=== PATIENT | female | born 1940 | race Caucasian/White ===

== ENCOUNTER → 2016-08-06 | Day surgery (SDC) | payer MEDICARE ==
--- NOTE | 2016-07-31 14:25 | MH ---
cc: Lorin CABRALES M.D. DATE OF ADMISSION: 08/06/2016 ADMITTING DIAGNOSIS Status post open reduction, internal fixation of right tibial plateau fracture, now for hardware removal. HISTORY OF PRESENT ILLNESS This is pleasant 75-year-old female is being admitted today for removal of hardware from her right tibia secondary to fracture which she sustained over two years ago. PAST MEDICAL HISTORY 1. Arthritis. 2. Hypertension. MEDICATIONS 1. Lisinopril/hydrochlorothiazide. 2. Oxybutynin. 3. Simvastatin. PAST SURGICAL HISTORY Previous surgery is only on the knee. REVIEW OF SYSTEMS Noncontributory. FAMILY HISTORY Noncontributory. SOCIAL HISTORY She does not smoke or drink. ALLERGIES No known allergies. PHYSICAL EXAMINATION GENERAL: We find a 75-year-old female well-developed, well-nourished, oriented x3, complaining of pain in her right knee. VITAL SIGNS: Blood pressure 120/72, pulse 74 and regular, respirations 16, temperature 97.7, pulse oximetry 98% on room air. HEENT: Eyes PERRLA, EOMI. Ears, nose and mouth clear. NECK: Supple. LUNGS: Clear. HEART: Regular rate. ABDOMEN: Soft. Positive bowel sounds. Nontender. EXTREMITIES: The right knee is tender with crepitance on range of motion. She is neurovascularly intact to her toes. IMPRESSION The impression at this time is arthritic degeneration secondary to a tibial plateau fracture right leg for which she underwent open reduction, internal fixation with hardware. PLAN The plan is for removal of hardware today and eventually she will require a total knee arthroplasty. She understands the procedure well and the risks involved. She is given a prescription for postoperative pain control in the office. MD PEDRO Cunningham/VIET /2:16 PM /2:20 PM
[~2016-08-06] VITALS: Ht 157.5 cm; Wt 79.8 kg
[~2016-08-06] MED LIST: BUPIVACAINE HCL PF 0.25% 30 ML VIAL INFIL ONE; BUPIVACAINE HCL PF 0.25% 30 ML VIAL ONE; BUPIVACAINE HCL PF 0.5% 30 ML VIAL ONE; CHLORHEXIDINE GLUCONATE 2 % 1 PACK (2 CLOTHS) TOPICAL PRN; CHLORHEXIDINE GLUCONATE 4% SOLN 120 ML BTL TOPICAL SCH; CYCL1TAB29 PO; DO NOT ADM ANY ANTICOAGULANT DRUGS PRN; ERGO2000 PO; FAMOTIDINE 20 MG/2 ML VIAL ONE; HYDR-3516 PO; INSULIN HUMAN REGULAR 1,000 UNITS/10 ML VIAL SQ PRN; KETAMINE HCL 500 MG/5 ML VIAL ONE; KETOROLAC TROMETHAMINE 30 MG/ML (IVP) VIAL IVP PRN; KETOROLAC TROMETHAMINE 60 MG/2 ML (IM) VIAL IM ONE; LACTATED RINGER'S 1000 ML INJ 1,000 ML IV SCH; LACTATED RINGER'S 1000 ML IV PRN; LISI20TA PO; MEPERIDINE HCL 50 MG/ML VIAL IM ONE; METOPROLOL TARTRATE 25 MG TAB PO PRN; MIDAZOLAM HCL 2 MG/2 ML VIAL ONE; MORPHINE SULFATE 4 MG/ML INJ ONE; ONDANSETRON HCL 4 MG/2 ML VIAL IV PRN; ONDANSETRON HCL 4 MG/2 ML VIAL IV PUSH ONE; OXYB5TAB10 PO; PHENYLEPH/NS 1000 MCG/10 ML SYR IV ONE; POVIDONE IODINE 5% (ANTISEPSIS KIT) 4 APPLICATIONS EACH NARE PRN; PROPOFOL 200 MG/20 ML AMP IV ONE; SIMV20TA PO; SODIUM CHLORID 0.9% 500 ML IV PRN; TYLE325T PO; VANCOMYCIN 1000 MG/NS 250 ML (for <70 kg) IV SCH; ZOLE5P IV; ceFAZolin 2 GM PREMIX 50 ML IV SCH; ceFAZolin INJ 1,000 MG VIAL ONE; ePHEDrine/NS 25 MG/5 ML SYR IV ONE; oxyCODONE/ACETAMINOPHEN 5 MG/325 MG TAB PO PRN
[2016-08-06 05:30] VITALS: BP 116/57; PULSE 75; RESP 20; TEMP 98.7; O2SAT 98
--- NOTE | 2016-08-06 08:09 | EKG ---
Date Performed: 08/06/2016 Time Performed: 07:36:45 PTAGE: 75 years EKG: Sinus rhythm POSSIBLE LEFT ATRIAL ENLARGEMENT BORDERLINE ECG PREVIOUS TRACING : 03/17/2014 05.52 DOCTOR: Chris Reece Interpretating Date/Time 08/06/2016 08:07:05
--- NOTE | 2016-08-06 11:07 | RADRPT ---
EXAM DATE/TIME: 08/06/2016 09:28 [facility] COMPARISON: KNEE RIGHT LTD (1 OR 2 VWS), March 18, 2014, 14:05. INDICATIONS : Hardware removal right tib. MEDICAL HISTORY : None. SURGICAL HISTORY : Orif right tib. ENCOUNTER: Initial ACUITY: 1 day PAIN SCORE: Non-responsive. LOCATION: Right Tib. FINDINGS: A single view postop demonstrates removal of the previous side plate in the proximal tibia. There are 3 internal fixation screws remaining along the medial proximal tibia. CONCLUSION: The previously noted hardware has been removed. Henry Lizama MD on August 06, 2016 at 11:04 Board Certified Radiologist. This report was verified electronically.
[2016-08-06 12:00] VITALS: BP 111/50; PULSE 70; RESP 20; TEMP 96.3; O2SAT 98
--- NOTE | 2016-08-06 19:34 | MP ---
cc: Lorin CABRALES M.D. DATE OF SURGERY 08/06/2016 PREOPERATIVE DIAGNOSIS Retained hardware, status post open reduction, internal fixation of right tibial plateau fracture two years ago. POSTOPERATIVE DIAGNOSIS Retained hardware, status post open reduction, internal fixation of right tibial plateau fracture two years ago. SURGERY PERFORMED Removal of plate and screws from the lateral side of the tibial plateau fracture right leg. SURGEON Dr. Cabrales CONDUIT WORKER BIANKA Brothers ANESTHESIA General intubation. PROCEDURE DETAILS The patient was brought to the operating room and placed on the operating table in supine position. After successful induction of general anesthesia, the patient's right knee and leg were prepped, draped usual manner. An incision was then made through the old anterior lateral incision, 8 inches in length centering over the knee joint on the lateral side and coming down along the lateral tibial plateau and proximal tibia. It was carried down to subcutaneous tissue, deep fascia, to expose the plate and screws over the proximal tibia. Plate and screws were removed using screwdriver and the plate freed with a periosteal elevator. However, the distal screw was filled with a screw that was extremely tight and could not be removed using the screwdriver. Therefore, extra time was needed about an hour of extra time to bend the plate sufficiently to get it off the screw followed by trying different devices to remove the screw which failed until we got a vice merchandise examiner plier to clasp onto the head followed by small drill hole made right next to the screws to free it up somewhat to remove the screw. After the screw was removed AP and lateral views revealed successful removal of the plate and screws from the lateral side. The three proximal screws were left as these will be removed when the patient undergoes a total knee later on. The surgical forceps fabricator Macario Gaytan, was utilized and present during the entire procedure for the patient positioning, medical necessity as well as the procedure itself. The medical necessity of nurse practitioner welder first class was indicated in this case due to the surgical complexity of the case itself and during the surgical case. The surgical technologist worked the back table while surgical technologistBIANKA was directly assisting me. The deep fascia approximated with interrupted running 0 Vicryl suture. Subcutaneous tissue approximated using interrupted running 2-0 and 4-0 Monocryl suture. Steri-Strips, sterile dressing and bulky wrap. No tourniquet utilized. No drain utilized. Estimated blood loss 150 mL. The sponge, instrument counts were correct. The patient tolerated the procedure well and left the operating room in satisfactory condition. J. MD PEDRO Quintana/KK /10:04 AM /7:17 PM
== END | disposition home or self-care (01) ==
LOC: HSDC 05:39
PROVIDERS: ATTEND Surgery
DX: Z47.2 Encounter for removal of internal fixation device (principal); Z87.81 Personal history of (healed) traumatic fracture; R94.31 Abnormal electrocardiogram [ECG] [EKG]
CPT/HCPCS: 01392; 20680; 73590; 76000; 93005; J1885; J2250; J2270; J2370; J2405; J3010; J3370; J7050; J7120; J0690

== ENCOUNTER 2016-12-02 08:31 | Inpatient (IN) | payer MEDICARE ==
--- NOTE | 2016-11-26 13:44 | MH ---
cc: Lorin CABRALES M.D. DATE OF ADMISSION: 12/02/2016 ADMITTING DIAGNOSIS Arthritic degeneration right knee, now for a right total knee arthroplasty along with removal of hardware. HISTORY OF PRESENT ILLNESS This pleasant 75-year-old female is being admitted today for a right total knee arthroplasty and removal of three screws. The patient had previous fracture many years ago of the right knee for which she required open reduction, internal fixation with hardware, and back in July 2016 she had the lateral plate removed. PAST MEDICAL HISTORY 1. Arthritis. 2. Hypertension. MEDICATIONS 1. Lisinopril. 2. Hydrochlorothiazide. 3. Oxybutynin. 4. Simvastatin. 5. Vitamin-D. REVIEW OF SYSTEMS Noncontributory. FAMILY HISTORY Noncontributory. SOCIAL HISTORY She does not smoke or drink. ALLERGIES No known allergies. PHYSICAL EXAMINATION GENERAL: We find a 75-year-old female, well-developed, well-nourished oriented x3, complaining of pain in her right knee. VITAL SIGNS: Blood pressure 120/72, pulse 62 and regular, respirations 18, temperature 97.9, pulse oximetry 96% on room air. HEENT: Eyes PERRLA, EOMI. Ears, nose, mouth clear. NECK: Supple. LUNGS: Clear. HEART: Regular rate. ABDOMEN: Soft. Positive bowel sounds. Nontender. EXTREMITIES: The right knee has genu valgus deformity and crepitance on range of motion. She lacks 5 degrees short of full extension and 90 degrees of flexion. She is otherwise neurovascularly to her toes. 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 She will have the three screws removed as well. She understands the procedure well and risks involved and wishes to proceed with surgery as soon as possible. She is given a prescription for postoperative pain and anticoagulation control in the office. She plans on going home after surgical stay. MD PEDRO Cunningham/VIET /1:31 PM /1:35 PM
[~2016-12-02] VITALS: Ht 157.5 cm; Wt 79.9 kg
[~2016-12-02 08:31] MED LIST changes: +ASPI81TA11 PO; -BUPIVACAINE HCL PF 0.25% 30 ML VIAL INFIL ONE; -BUPIVACAINE HCL PF 0.25% 30 ML VIAL ONE; -BUPIVACAINE HCL PF 0.5% 30 ML VIAL ONE; -CHLORHEXIDINE GLUCONATE 2 % 1 PACK (2 CLOTHS) TOPICAL PRN; -CHLORHEXIDINE GLUCONATE 4% SOLN 120 ML BTL TOPICAL SCH; -DO NOT ADM ANY ANTICOAGULANT DRUGS PRN; -FAMOTIDINE 20 MG/2 ML VIAL ONE; -HYDR-3516 PO; -INSULIN HUMAN REGULAR 1,000 UNITS/10 ML VIAL SQ PRN; -KETAMINE HCL 500 MG/5 ML VIAL ONE; -KETOROLAC TROMETHAMINE 30 MG/ML (IVP) VIAL IVP PRN; -KETOROLAC TROMETHAMINE 60 MG/2 ML (IM) VIAL IM ONE; -LACTATED RINGER'S 1000 ML INJ 1,000 ML IV SCH; -LACTATED RINGER'S 1000 ML IV PRN; -MEPERIDINE HCL 50 MG/ML VIAL IM ONE; -METOPROLOL TARTRATE 25 MG TAB PO PRN; -MIDAZOLAM HCL 2 MG/2 ML VIAL ONE; -MORPHINE SULFATE 4 MG/ML INJ ONE; -ONDANSETRON HCL 4 MG/2 ML VIAL IV PRN; -ONDANSETRON HCL 4 MG/2 ML VIAL IV PUSH ONE; -PHENYLEPH/NS 1000 MCG/10 ML SYR IV ONE; -POVIDONE IODINE 5% (ANTISEPSIS KIT) 4 APPLICATIONS EACH NARE PRN; -PROPOFOL 200 MG/20 ML AMP IV ONE; -SODIUM CHLORID 0.9% 500 ML IV PRN; -TYLE325T PO; -VANCOMYCIN 1000 MG/NS 250 ML (for <70 kg) IV SCH; -ceFAZolin 2 GM PREMIX 50 ML IV SCH; -ceFAZolin INJ 1,000 MG VIAL ONE; -ePHEDrine/NS 25 MG/5 ML SYR IV ONE; -oxyCODONE/ACETAMINOPHEN 5 MG/325 MG TAB PO PRN
[2016-12-02] MEDS ORDERED: METOPROLOL TARTRATE 25 MG TAB PO PRN (09:15)
[2016-12-02] MEDS ORDERED: INSULIN HUMAN REGULAR 1,000 UNITS/10 ML VIAL SQ PRN (09:15)
[2016-12-02] MEDS ORDERED: LACTATED RINGER'S 1000 ML IV PRN (09:15)
[2016-12-02] MEDS ORDERED: VANCOMYCIN 1000 MG/NS 250 ML (for <70 kg) IV SCH ×2 (09:15)
[2016-12-02] MEDS ORDERED: ceFAZolin 2 GM PREMIX 50 ML IV SCH (09:15)
[2016-12-02] MEDS ORDERED: POVIDONE IODINE 5% (ANTISEPSIS KIT) 4 APPLICATIONS EACH NARE PRN (09:15)
[2016-12-02] MEDS ORDERED: DEXAMETHASONE SOD PHOS 20 MG/5 ML VIAL IV SCH (09:15)
[2016-12-02] MEDS ORDERED: CHLORHEXIDINE GLUCONATE 4% SOLN 120 ML BTL TOPICAL SCH (09:15)
[2016-12-02] MEDS ORDERED: CHLORHEXIDINE GLUCONATE 2 % 1 PACK (2 CLOTHS) TOPICAL PRN (09:15)
[2016-12-02] MEDS ORDERED: SODIUM CHLORID 0.9% 500 ML IV PRN (09:15)
[2016-12-02] MEDS ORDERED: ceFAZolin INJ 1,000 MG VIAL ONE (09:56)
[2016-12-02 10:00] LABS: AUTOMATED NEUTROPHIL # 3.6 TH/MM3 (1.8-7.7); BASOPHIL % 0.8 % (0.0-2.0); EOSINOPHIL # 0.1 TH/MM3 (0-0.4); EOSINOPHIL % 1.9 % (0.0-4.0); HEMATOCRIT 37.2 % (35.0-46.0); HEMO FLAGS DIFF FINAL; LYMPHOCYTE # 0.7 TH/MM3 (1.0-4.8); MEAN CELL VOLUME 90.9 FL (80.0-100.0); MEAN CORPUSCULAR HEMOGLOBIN 30.5 PG (27.0-34.0); MEAN CORPUSCULAR HGB CONC 33.5 % (32.0-36.0); MONO % 12.6 % (0.0-8.0); NEUT % 70.7 % (16.0-70.0); PLATELET COUNT 232 TH/MM3 (150-450); RED BLOOD COUNT 4.09 MIL/MM3 (4.00-5.30); RED CELL DISTRIBUTION WIDTH 13.6 % (11.6-17.2)
[2016-12-02] MEDS ORDERED: TRANEXAMIC ACID INJ 799 MG in SODIUM CHLORIDE 0.9% INJ 100 ML IV SCH ×2 (10:00→13:00)
[2016-12-02] MEDS ORDERED: EXPAREL PERI-ARTICULAR INJECTION (TOTAL VOL. 120 ML) P-ARTICULR SCH ×2 (10:00)
--- NOTE | 2016-12-02 10:59 | HHI.FF ---
Face to Face Verification Diagnosis: (1) Status post total right knee replacement Physical Therapy Gait training Knee: Total knee, Protocol: Right, Full weight bearing Canvas Knee Splint: When in bed & 2 pillows btw thighs Nursing RN: 3 days/week x 2 weeks Nursing: Dressing changes Dressing Changes: Daily dressing change, 4x4s, Gauze, Paper tape I have seen patient Sangeetha Thompson on 12/02/16. My clinical findings support the need for the requested home health care services because: Limited ability to care for self High risk of falls I certify that my clinical findings support that this patient is homebound because: Unsteady gait/balance Lorin Garcias MD Dec 02, 2016 10:59
[2016-12-02] MEDS ORDERED: NALOXONE HCL 0.4 MG/ML AMP IV PRN (11:00)
[2016-12-02] MEDS ORDERED: Post-op Orders (for Pharmacy) MISC XX ONE (11:00)
[2016-12-02] MEDS ORDERED: ZOLEDRONIC ACID 5 MG IV SCH (11:00)
[2016-12-02] MEDS ORDERED: TRANEXAMIC ACID INJ 0 MG in SODIUM CHLORIDE 0.9% INJ 100 ML IV SCH (11:00)
[2016-12-02] MEDS ORDERED: SODIUM CHLORIDE 0.9% FLUSH 5 ML FLUSH IVF PRN (11:00)
[2016-12-02] MEDS ORDERED: ACETAMINOPHEN 325 MG TAB PO PRN (11:00)
[2016-12-02] MEDS ORDERED: diphenhydrAMINE HCL 50 MG/ML VIAL IV PRN (11:00)
[2016-12-02] MEDS ORDERED: ONDANSETRON HCL 4 MG/2 ML VIAL IVP PRN (11:00)
[2016-12-02] MEDS ORDERED: MORPHINE SULFATE 4 MG/ML INJ IV PUSH PRN (11:00)
[2016-12-02] MEDS ORDERED: ADJUSTABLE COMM1 MIS (11:01)
[2016-12-02] MEDS ORDERED: CPMMACHINE (11:01)
[2016-12-02] MEDS ORDERED: WALKER WHEELS/F1 MIS (11:01)
[2016-12-02 11:14] LABS: INTERNATIONAL NORMALIZED RATIO 0.9 RATIO; PROTHROMBIN TIME - PATIENT 10.1 SEC (9.8-11.6)
[2016-12-02 11:15] LABS: APTT (PATIENT) 26.4 SEC (24.3-30.1)
[2016-12-02 11:24] LABS: ALT (GPT) 16 U/L (10-53); ANION GAP 7 MEQ/L (5-15); AST (GOT) 14 U/L (15-37); BLOOD UREA NITROGEN 15 MG/DL (7-18); CHLORIDE 105 MEQ/L (98-107); GLOMERULAR FILTRATION RATE 80 ML/MIN (>89); POTASSIUM 4.1 MEQ/L (3.5-5.1); SODIUM (NA) 137 MEQ/L (136-145)
[2016-12-02 11:26] LABS: ALKALINE PHOSPHATASE 77 U/L (45-117); TOTAL BILIRUBIN ADULT 0.5 MG/DL (0.2-1.0)
[2016-12-02] MEDS ORDERED: PHENYLEPH/NS 1000 MCG/10 ML SYR IV ONE (12:00)
[2016-12-02] MEDS ORDERED: MIDAZOLAM HCL 2 MG/2 ML VIAL IV ONE (12:00)
[2016-12-02] MEDS ORDERED: ONDANSETRON HCL 4 MG/2 ML VIAL IV PUSH ONE (12:00)
[2016-12-02] MEDS ORDERED: PROPOFOL 200 MG/20 ML AMP IV ONE (12:00)
[2016-12-02] MEDS ORDERED: ePHEDrine/NS 25 MG/5 ML SYR IV ONE (12:00)
[2016-12-02 12:02] LABS: BLOOD, URINE TRACE (NEG); GLUCOSE,URINE NEG (NEG); KETONE, URINE NEG (NEG); NITRITE,URINE NEG (NEG); SQUAMOUS EPITHELIAL CELL URINE <1 /hpf (0-5); URINE COLOR COLORLESS (YELLW/STRAW)
[2016-12-02 12:03] LABS: COMMENT (UR) CULT NOT INDICATED; CULTURE IF INDICATED CULT NOT INDICATED
[2016-12-02] MEDS ORDERED: BUPIVACAINE HCL PF 0.5% 30 ML VIAL NERV BLOCK ONE (12:11)
[2016-12-02] MEDS ORDERED: DEXAMETHASONE SOD PHOS PF 10 MG/ML VIAL IV ONE (12:11)
[2016-12-02] MEDS ORDERED: ACETAMINOPHEN 1000 MG/100 ML 100 ML IV ONE (12:41)
[2016-12-02] MEDS ORDERED: PROPOFOL 200 MG/20 ML AMP ONE (13:08)
[2016-12-02] MEDS ORDERED: TOBRAMYCIN SULFATE 1200 MG VIAL OTHER ONE (13:11)
[2016-12-02] MEDS ORDERED: KETAMINE HCL 500 MG/5 ML VIAL ONE (13:50)
--- NOTE | 2016-12-02 14:54 | MP ---
cc: Lorin CABRALES M.D. DATE OF SURGERY: 12/02/2016 PREOPERATIVE DIAGNOSIS Osteoarthritic degeneration right knee with valgus deformity and retained hardware. POSTOPERATIVE DIAGNOSIS Osteoarthritic degeneration right knee with valgus deformity and retained hardware. SURGERY PERFORMED Right total knee arthroplasty with removal of hardware, three screws right knee, using Consensus components, size 5 femur, 2 tibia, 12 standard insert and size 2 patella with two batches of antibiotic-impregnated cement. SURGEON Dr. Cabrales. INFLATABLE BUILDINGS LAMINATOR BIANKA Thomas. ANESTHESIA Spinal and block. PROCEDURE After successful induction of anesthesia, the patient is placed on the operating room table in the supine position. The knee is prepped and draped in the usual manner. A tourniquet is inflated at the upper thigh and set to 300 mmHg pressure after exsanguination of the lower extremity. A longitudinal incision is made extending from 3 inches proximal to the superior pole of the patella, across the patella in longitudinal fashion, and down past the insertion of the tibial tubercle into the proximal tibia. The incision is carried down through subcutaneous tissue along the medial aspect of the patella and retinaculum, down through the capsule to expose the knee joint. The patella and patellar tendon are freed up enough to allow the patella to be inverted and retracted off the lateral side of the knee joint. The knee joint is left exposed. Small osteophytes are removed. All soft tissue is removed to allow proper position of the femoral and tibial cutting jig guide. The first femoral jig is then inserted along the distal end of the femur after first measuring to decide whether this is a small, medium, or large component. The notch is then drilled and the tibial cutting guide inserted into the femoral cutting guide, along with the ankle brace to allow for proper measurement of the tibial cutting surface that needed to be resected. Pins are inserted into the tibial cutting jig and femoral cutting jig to hold them in place. An oscillating saw is then used to resect the surface of the tibia. The surface of the tibia is then completely removed using sharp and blunt dissection. The anterior and posterior cuts of the femur are then made as well using an oscillating saw through the cutting guide. All guides are then removed and the varus/valgus angulation cutting guide applied to the femur for proper measurement of the proper amount of valgus. The anterior cutting guide for the femur is then inserted at the anterior femoral cuts made. Next, the first block trial is inserted into the femur to allow for proper condyle drill holes to be made which are then made followed by removal of the bone between the condyles using an oscillating saw as well as the bone removed at the most posterior surface of the condyle. After this, this guide is removed and the chamfer cuts made using the chamfer cutting guide from both anterior and posterior. Next, the femoral trial is then inserted, the tibial surface reflected anterior to expose the tibial surface and a tibial stem guide is inserted after first measuring for a standard, standard plus, large, or large plus surface to be used. After the stem is impacted the trial tibial surface is applied followed by the trial meniscal components. After full range of motion is found with the appropriate length meniscal components varying the patella is prepared by resecting the posterior aspect of the patella using an oscillating saw, inserting a trial. The trial is then removed and the cruciate cutting guide applied using the bur to cut the cruciate cuts. After cruciate cuts are made all trials are removed. The wound is irrigated copiously with antibiotic solution and Water Pik and the actual components inserted into place using Consensus components, size 5 femur, 2 tibia, 12 standard insert and size 2 patella with two batches of antibiotic-impregnated cement. Prior to performing the total knee itself once the incision was carried down to the tibia, three screws had to be found and removed. Then after the total knee part was done a lateral retinacular release and release of the lateral collateral ligament was needed to soft balance the tissue to allow the patella to track in its more natural frame. After the cement has hardened and the components are found to have full range of motion with no instability, the tourniquet is deflated, total tourniquet time being 83 minutes at 300 mmHg pressure. The wound again is irrigated copiously with antibiotic solution, meticulous hemostasis achieved. 100 cc of Exparel was injected around the knee joint. The medial collateral ligament was supplementary repaired using interrupted #1 Vicryl. The deep fascia was approximated with running #2 Quill. The subcutaneous tissue was approximated using interrupted and running 2-0 and 3-0 Monocryl suture. Steri-Strips, sterile dressing and a knee immobilizer were applied. No drain was utilized. Estimated blood loss was 300 cc. Sponge and suture counts were correct. The patient tolerated the procedure well and left the operating room in satisfactory condition. Loan Mendoza, PHOTOGRAPHER SCIENTIFIC was present during the entire procedure to include patient positioning and the procedure. The medical necessity of the nurse practitioner first aid nurse was indicated in this case due to the surgical complexity of the case itself. During the surgical case the surgical specialist was working the back table while my surgical asst PHOTOGRAPHER SCIENTIFIC was directly assisting me. J. MD PEDRO Quintana/VIET /2:05 PM /2:31 PM
[2016-12-02] MEDS: LACTATED RINGER'S 1000 ML INJ 1,000 ML IV SCH ×2 (15:00→23:23)
--- NOTE | 2016-12-02 15:55 | RADRPT ---
EXAM DATE/TIME: 12/02/2016 14:56 [facility] COMPARISON: KNEE RIGHT LTD (1 OR 2 VWS), March 18, 2014, 14:05. INDICATIONS : Post operative right knee. MEDICAL HISTORY : None. SURGICAL HISTORY : Hardware placed and removed from right tib-fib. ENCOUNTER: Initial ACUITY: 1 day PAIN SCORE: Non-responsive. LOCATION: Right knee. FINDINGS: Frontal and crosstable lateral portable views of the knee are obtained and demonstrate a right total knee arthroplasty. The tibial and femoral components appear well seated. There is soft tissue emphyse ma and a small knee joint effusion identified consistent with the surgery. The plate and screw fixati on hardware of the proximal tibia has been removed. CONCLUSION: Right total knee arthroplasty. Pardeep Pierre MD on December 02, 2016 at 15:52 Board Certified Radiologist. This report was verified electronically.
--- NOTE | 2016-12-02 17:04 | HHI.PR ---
Immediate Post Op Note Procedure Date: Dec 02, 2016 Pre Op Diagnosis: Arthritic degeneration right knee Post Op Diagnosis: Arthritic degeneration right knee Surgeon: Lorin Garcias MD Manager Rn Case(s): Cyndi CARLTON Procedure: Right Total Knee Arthroplasty Complications: none Specimen(s) removed: none Estimated blood loss: 300 cc Anesthesia: Spinal Drains: None IVF Tourniquet time (min at mmHg) 84 mins 300mmHg Patient to: PACU Patient Condition: Good Implant/Devices: SEE IMPLANT LOG (if applicable) Date/Time of Procedure: SEE SURGICAL CARE RECORD Cyndi Mendoza Dec 02, 2016 17:04
[2016-12-02 17:39] VITALS: BP 121/65; PULSE 77; RESP 18; O2SAT 98
[2016-12-02 17:50] VITALS: O2SAT 98
[2016-12-02 20:04] VITALS: BP 118/61; PULSE 85; RESP 17; TEMP 95; O2SAT 99
[2016-12-02] MEDS: PRAVASTATIN SOD 40 MG TAB PO SCH (20:25)
[2016-12-02] MEDS: CYCLOBENZAPRINE HCL 10 MG TAB PO PRN (20:25)
[2016-12-02] MEDS: SODIUM CHLORIDE 0.9% FLUSH 5 ML FLUSH IVF SCH (20:26)
[2016-12-02] MEDS: ACETAMINOPHEN/HYDROcodone 325 MG/7.5 MG TAB PO PRN (20:26)
[2016-12-02] MEDS ORDERED: TEMAZEPAM 15 MG CAP PO PRN (21:00)
[2016-12-03] VITALS (7 sets, daily range): BP systolic 90–133; BP diastolic 53–76; PULSE 68–87; RESP 17–19; TEMP 95–99.8; O2SAT 93–100
[2016-12-03] MEDS: ACETAMINOPHEN/HYDROcodone 325 MG/7.5 MG TAB PO PRN ×4 (00:38→19:30)
[2016-12-03 05:37] LABS: HEMATOCRIT 31.8 % (35.0-46.0); REVIEW FLAG FINAL
[2016-12-03] MEDS ORDERED: NON-FORMULARY DRUG (Lisinopril-Hctz 1 TAB) PO SCH (09:00)
[2016-12-03] MEDS: SODIUM CHLORIDE 0.9% FLUSH 5 ML FLUSH IVF SCH ×2 (09:06→20:08)
[2016-12-03] MEDS: ASPIRIN EC 81 MG TABEC PO SCH (09:06)
[2016-12-03] MEDS: OXYBUTYNIN CHLORIDE 5 MG TAB PO SCH (09:08)
[2016-12-03] MEDS: LISINOPRIL 20 MG TAB PO SCH (09:10)
[2016-12-03] MEDS: HYDROCHLOROTHIAZIDE 25 MG TAB PO SCH (09:10)
--- NOTE | 2016-12-03 11:21 | PD.ORT.PN ---
Subjective Subjective Remarks Patient is complaining of some pain in her knee today. Objective Vitals Vital Signs Date Time Temp Pulse Resp B/P (MAP) Pulse Ox O2 Delivery O2 Flow Rate FiO2 12/03/16 08:00 97.0 75 18 90/53 (65) 95 12/03/16 04:00 97.0 80 17 133/72 (92) 100 12/03/16 00:37 97 12/03/16 00:00 95.0 68 17 118/58 (78) 99 12/02/16 20:04 95.0 85 17 118/61 (80) 99 12/02/16 17:50 98 21 12/02/16 17:39 77 18 121/65 (83) 98 12/02/16 16:44 97.3 80 20 121/62 (81) 100 Nasal Cannula 2 12/02/16 16:00 80 20 121/62 (81) 100 Nasal Cannula 2 12/02/16 15:45 77 20 110/60 (77) 100 Nasal Cannula 2 12/02/16 15:30 80 20 110/60 (77) 98 Nasal Cannula 2 12/02/16 15:15 85 20 109/56 (73) 92 Nasal Cannula 2 12/02/16 15:00 79 20 101/55 (70) 100 Nasal Cannula 2 12/02/16 14:45 80 20 90/52 (65) 100 Nasal Cannula 2 12/02/16 14:39 97.3 79 20 97/54 (68) 99 Nasal Cannula 2 I/O 12/02/16 12/02/16 12/02/16 12/03/16 12/03/16 12/03/16 07:00 15:00 23:00 07:00 15:00 23:00 Intake Total 1850 ml 240 ml 480 ml Output Total 300 ml Balance 1550 ml 240 ml 480 ml Intake Oral 240 ml 480 ml IV Total 250 ml Other 1600 ml Output Estimated Blood Loss 300 ml # Voids 1 3 Result Diagram: 12/03/16 0510 12/02/16 1025 Objective Remarks Her dressing is dry and intact. She is neurovascularly intact to her toes. The block is wearing off. Negative Homans sign. She is sitting up in a chair today. Assessment & Plan Ortho Post Op Day #: 1 Problem List: Assessment and Plan Continue PT and out of bed. Continue wound care. Plan on discharge tomorrow to custodial facility. Lorin Garcias MD Dec 03, 2016 11:21
[2016-12-03] MEDS ORDERED: HYDR-3580 PO (11:24)
[2016-12-03] MEDS: LACTATED RINGER'S 1000 ML INJ 1,000 ML IV SCH (11:53)
[2016-12-03] MEDS: APIXABAN 2.5 MG TABLET PO SCH ×2 (14:17→20:09)
[2016-12-03] MEDS ORDERED: MAGNESIUM HYDROXIDE SUSP 30 ML CUP PO ONE (16:45)
[2016-12-03] MEDS: PRAVASTATIN SOD 40 MG TAB PO SCH (20:08)
[2016-12-03] MEDS: DOCUSATE SODIUM 100 MG CAP PO SCH (20:08)
[2016-12-03] MEDS: MULTIVITAMINS/MINERALS THERAPEUTIC TAB PO SCH (20:08)
[2016-12-03] MEDS: MAGNESIUM HYDROXIDE SUSP 30 ML CUP PO SCH (20:09)
[2016-12-04] VITALS: BP 114/51; PULSE 80; RESP 18; TEMP 98.4; O2SAT 94
[2016-12-04] MEDS: ACETAMINOPHEN/HYDROcodone 325 MG/7.5 MG TAB PO PRN ×3 (00:01→09:39)
[2016-12-04] MEDS: LACTATED RINGER'S 1000 ML INJ 1,000 ML IV SCH (00:23)
[2016-12-04 05:45] LABS: HEMATOCRIT 28.4 % (35.0-46.0); REVIEW FLAG FINAL
[2016-12-04] MEDS: CYCLOBENZAPRINE HCL 10 MG TAB PO PRN (06:13)
--- NOTE | 2016-12-04 07:32 | PD.ORT.PN ---
Subjective Subjective Remarks Patient is complaining of some pain in her knee last night but it is better now. Objective Vitals Vital Signs Date Time Temp Pulse Resp B/P (MAP) Pulse Ox O2 Delivery O2 Flow Rate FiO2 12/04/16 00:00 98.4 80 18 114/51 (72) 94 12/03/16 20:00 97.3 81 18 119/55 (76) 96 12/03/16 16:00 97.2 76 18 118/76 (90) 94 12/03/16 12:00 95.7 81 18 100/63 (75) 93 12/03/16 08:00 97.0 75 18 90/53 (65) 95 I/O 12/03/16 12/03/16 12/03/16 12/04/16 12/04/16 12/04/16 07:00 15:00 23:00 07:00 15:00 23:00 Intake Total 480 ml 600 ml 320 ml 220 ml Output Total 300 ml 400 ml Balance 480 ml 600 ml 20 ml -180 ml Intake Oral 480 ml 600 ml 320 ml 220 ml Output Urine Total 300 ml 400 ml # Voids 3 4 # Bowel Movements 0 0 0 Result Diagram: 12/04/16 0424 12/02/16 1025 Objective Remarks Her dressing is dry and intact. She is neurovascularly intact to her toes. Negative Homans sign. Assessment & Plan Ortho Post Op Day #: 2 Problem List: Assessment and Plan Continue PT and out of bed. Continue wound care. Plan on discharge today to half-way facility. Lorin Garcias MD Dec 04, 2016 07:32
[2016-12-04] MEDS ORDERED: CYCL1TAB29 PO (07:34)
--- NOTE | 2016-12-04 07:37 | HHI.DS ---
Discharge Summary Admission Date Dec 02, 2016 at 08:31 Discharge Date: Dec 04, 2016 Admitting Diagnosis Osteoarthritic degeneration right knee Diagnosis: (1) Status post total right knee replacement ICD Codes: Z96.651 - Presence of right artificial knee joint Brief History This is a 75 year old female patient CBC/BMP: 12/04/16 0424 12/02/16 1025 Significant Findings Laboratory Tests Test 12/02/16 09:15 12/02/16 10:25 12/02/16 10:35 12/03/16 05:10 Neutrophils (%) (Auto) 70.7 % (16.0-70.0) Monocytes (%) (Auto) 12.6 % (0.0-8.0) Lymphocytes # (Auto) 0.7 TH/MM3 (1.0-4.8) Aspartate Amino Transf (AST/SGOT) 14 U/L (15-37) Estimat Glomerular Filtration Rate 80 ML/MIN (>89) Urine Occult Blood TRACE (NEG) Hemoglobin 10.7 GM/DL (11.6-15.3) Hematocrit 31.8 % (35.0-46.0) Test 12/04/16 04:24 Hemoglobin 9.6 GM/DL (11.6-15.3) Hematocrit 28.4 % (35.0-46.0) PE at Discharge Her dressing is dry and intact. She is neurovascularly intact to her toes. Negative Homans sign. Hospital Course Patient underwent a right total knee arthroplasty and screw removal on day of admission. She received a course of prophylactic IV antibiotics and within 23 hours started on anticoagulation therapy. She continued to improve remained afebrile vital signs stable and remained neurovascularly intact daily. She received wound care and physical therapy daily. She continued to improve and was discharged to shelter facility on postoperative day 2 in good condition with instructions for continuation of care and follow-up appointment in the office. Pt Condition on Discharge: Good Discharge Disposition: Discharge to SNF Discharge Instructions Diet Instructions: As Tolerated, No Restrictions Activities You Can Perform: Full Weight Bearing, Shower Only-No Bath Activities to Avoid: Bathing, Driving Lorin Garcias MD Dec 04, 2016 07:37
[2016-12-04 08:00] VITALS: BP 110/48; PULSE 85; RESP 19; TEMP 97.4; O2SAT 95
[2016-12-04] MEDS: SODIUM CHLORIDE 0.9% FLUSH 5 ML FLUSH IVF SCH (09:00)
[2016-12-04 09:12] VITALS: O2SAT 92
[2016-12-04] MEDS: OXYBUTYNIN CHLORIDE 5 MG TAB PO SCH (09:38)
[2016-12-04] MEDS: DOCUSATE SODIUM 100 MG CAP PO SCH (09:38)
[2016-12-04] MEDS: APIXABAN 2.5 MG TABLET PO SCH (09:39)
[2016-12-04] MEDS: MULTIVITAMINS/MINERALS THERAPEUTIC TAB PO SCH (09:39)
[2016-12-04] MEDS: ASPIRIN EC 81 MG TABEC PO SCH (09:39)
[2016-12-04] MEDS: MAGNESIUM HYDROXIDE SUSP 30 ML CUP PO SCH (09:40)
[2016-12-04] MEDS: HYDROCHLOROTHIAZIDE 25 MG TAB PO SCH (09:40)
[2016-12-04] MEDS: LISINOPRIL 20 MG TAB PO SCH (09:40)
[2016-12-04] MEDS ORDERED: BACITRACIN OINT 0.9 GM PKT TOP PRN (10:15)
[2016-12-04 12:00] VITALS: BP 114/59; PULSE 79; RESP 18; TEMP 96.2; O2SAT 95
[2016-12-18] MEDS ORDERED: ERGOCALCIFEROL (VIT D2) 50,000 UNIT CAP PO SCH (09:00)
== END 2016-12-04 13:02 | DRG 470 ==
LOC: HSDI 08:31 → N06A 17:03
PROVIDERS: ADMIT Surgery; ATTEND Surgery
PROC: 0QPG04Z Removal of Internal Fixation Device from Right Tibia, Open Approach (ICD-10-PCS; 2016-12-02)
PROC: 0MNN0ZZ Release Right Knee Bursa and Ligament, Open Approach (ICD-10-PCS; 2016-12-02)
PROC: 3E0T3CZ (ICD-10-PCS; 2016-12-02)
PROC: 0SRC0J9 Replacement of Right Knee Joint with Synthetic Substitute, Cemented, Open Approach (ICD-10-PCS; principal; 2016-12-02 11:04)
DX: M17.11 Unilateral primary osteoarthritis, right knee (principal); I10 Essential (primary) hypertension; M21.061 Valgus deformity, not elsewhere classified, right knee
CPT/HCPCS: 73560; 80053; 81001; 85014; 85018; 85025; 85610; 85730; 86850; 86900; 86901; 94150; C1776; C9290; J0131; J0690; J1100; J2250; J2270; J2370; J2405; J3010; J3260; J3370; J7050; J7120; L1830